=== PATIENT | male | born 1995 | race Caucasian/White ===

== ENCOUNTER 2021-01-14 17:18 | Emergency (ER) | payer BC ==
[~2021-01-14] VITALS: Ht 188 cm; Wt 122.5 kg
--- NOTE | 2021-01-14 17:54 | NUR ---
BIBS FROM URGENT CARE TO ER BED 7. AAOX4. NOT IN RESP DISTRESS AMBULATORY. APPEARS ANXIOUS AND VERBALIZED THAT HE IS FEELING NERVOUS. [facility] D/T A POSSIBLE UMBILICUS HERNIA. PT NOTED WITH BUMP STICKING OUT OF HIS UMBILICUS WITH BROWNISH DISCHARGE. PAIN IS PRESENT WHEN PUSHING IN. MD AT BEDSIDE FOR EVAL. ORDERS RECEIVED, NOTED AND CARRIED OUT. IV LINE ESTABLISHED ON R AC 18G. BLOOD DRAWN AND SENT TO LAB.
[2021-01-14 18:04] LABS: BASOPHILS # (AUTO) 0.1 /CMM (0.0-0.2); BASOPHILS % (AUTO) 0.7 % (0.0-2.0); EOSINOPHILS % (AUTO) 1.4 % (0.0-6.0); HEMATOCRIT 53 % (39-51); HEMOGLOBIN 18.2 g/dL (13.5-17.5); LYMPHOCYTES # (AUTO) 2.2 /CMM (0.8-4.8); LYMPHOCYTES % (AUTO) 21.2 % (20.0-44.0); MEAN CORPUSCULAR HGB CONC 34 g/dl (31.0-36.0); MEAN CORPUSCULAR VOLUME 90 fL (80-96); MONOCYTES # (AUTO) 0.8 /CMM (0.1-1.30); MONOCYTES % (AUTO) 7.4 % (2.0-12.0); NEUTROPHILS # (AUTO) 7.2 /CMM (1.8-8.9); NEUTROPHILS % (AUTO) 69.3 % (43.0-81.0); PLATELET COUNT (AUTO) 302 /CMM (150-450); RED BLOOD CELL COUNT(AUTO) 5.87 MIL/uL (4.5-6.0); WHITE BLOOD COUNT (AUTO) 10.3 K/uL (4.3-11.0)
[2021-01-14 18:11] LABS: CALCIUM, SERUM 9.2 mg/dL (8.5-10.1); CREATININE 1.1 mg/dL (0.6-1.3); POTASSIUM 3.3 mmol/L (3.5-5.1)
[2021-01-14] MEDS ORDERED: IV NS 0.9% 250 ML IV ONE (18:26)
[2021-01-14] MEDS ORDERED: IOHEXOL-300 100 ML VIAL IV ONE (18:26)
[2021-01-14] MEDS ORDERED: CT SWABBABLE VALVE TRANS SET 1 EA INFUS.SET MC ONE (18:26)
[2021-01-14 19:00] LABS: EOSINOPHILS % (MANUAL) 1 % (0-4); LYMPHOCYTES % (MANUAL) 17 % (16-48); MONOCYTES % (MANUAL) 6 % (0-11.0); NEUTROPHILS % (MANUAL) 73 (42-76); REACTIVE LYMPHOCYTES 3 % (0-0)
[2021-01-14] MEDS ORDERED: CEPH500C2 PO (19:32)
[2021-01-14 20:25] VITALS: BP 145/89
== END 2021-01-14 20:26 | disposition home or self-care (01) ==
LOC: ER 17:23
DX: L08.82 Omphalitis not of newborn (principal)
CPT/HCPCS: 36415; 74177; 80048; 85007; 85025; 99285; J7050; Q9967